=== PATIENT | female | born 1970 | race Caucasian/White ===

== ENCOUNTER 2020-07-16 21:33 | Emergency (ER) | payer OTHER ==
[~2020-07-16 21:33] MED LIST: ALPRAZOLAM 1MG T1 MG PO; FIORICET1 EACH PO; ONDANSETRON ODT4 MG PO; ONDANSETRON ODT4 MG SL; PANTOPRAZOLE SO40 MG PO; RANITIDINE HCL150 MG PO; ROBAXIN750 MG PO; SUMATRIPTAN SU100 MG PO; VENLAFAXINE HCL75 M1 PO; VITAMIN D250000 UNIT PO
[2020-07-17] MEDS ORDERED: REGLAN10 MG PO (00:08)
== END 2020-07-17 00:20 | disposition home or self-care (01) ==
LOC: FER 21:33
DX: G43.909 Migraine, unspecified, not intractable, without status migrainosus (principal); Z79.899 Other long term (current) drug therapy
CPT/HCPCS: J1170; J1885; J2765; J7030